=== PATIENT | male | born 1985 | race Caucasian/White ===

== ENCOUNTER 2022-09-12 06:49 | Day surgery (SDC) | payer OTHER ==
[~2022-09-12] VITALS: Ht 175.3 cm; Wt 127.0 kg
[2022-09-12] VITALS (7 sets, daily range): BP systolic 97–138; BP diastolic 60–81
[~2022-09-12 06:49] MED LIST: ASPI-543 PO; DILT120C20 PO; ROSU10TA16 PO
[2022-09-12] MEDS ORDERED: OLME20TA53 PO (08:32)
[2022-09-12] MEDS ORDERED: TRAZ-181 PO (08:32)
[2022-09-12] MEDS ORDERED: fentaNYL CITRATE 100 MCG/2 ML VL ONE (10:30)
[2022-09-12] MEDS ORDERED: VERAPAMIL 2.5MG/ML INJ 2ML VIAL IV ONE (10:30)
[2022-09-12] MEDS ORDERED: ANGIOMAX 250 MG VIAL IV ONE (10:30)
[2022-09-12] MEDS ORDERED: HEPARIN SODIUM (PORCINE) 5000 UNITS/ML 1ML VIAL ONE (10:30)
[2022-09-12] MEDS ORDERED: MIDAZOLAM HCL 2MG/2ML 2ml VIAL (1mg/ml) ONE (10:30)
[2022-09-12] MEDS ORDERED: SODIUM CHL 0.9% 0 ML ONE (10:31)
[2022-09-12] MEDS ORDERED: LIDOCAINE 2%HCL (LOCAL ANESTH.) INJ 20ML MDV ONE (10:31)
[2022-09-12] MEDS ORDERED: IODIXANOL 320MG/ML 100ML BTL IV ONE ×2 (10:40→11:14)
== END 2022-09-12 13:10 | disposition home or self-care (01) ==
LOC: CATH 06:49
PROVIDERS: ATTEND Internal Medicine Cardiovascular Disease
DX: R07.89 Other chest pain (principal); R00.2 Palpitations; I10 Essential (primary) hypertension; E78.5 Hyperlipidemia, unspecified; G47.00 Insomnia, unspecified; E66.9 Obesity, unspecified; Z79.899 Other long term (current) drug therapy
CPT/HCPCS: 76937; 93458; C1725; C1894; J1644; J2250; J3010; Q9967; 99152